=== PATIENT | male | born 1955 | race Caucasian/White ===

== ENCOUNTER 2020-02-09 14:36 | Emergency (ER) | payer BC ==
--- NOTE | 2020-02-09 15:36 | EDM.PDOC ---
ED HPI GENERAL MEDICAL PROBLEM - General Chief Complaint: Upper Extremity Injury/Pain Stated Complaint: L SHOULDER INJURY Time Seen by Provider: 02/09/20 15:10 Source of Information: Reports: Patient History Limitations: Reports: No Limitations - History of Present Illness INITIAL COMMENTS - FREE TEXT/NARRATIVE: 64-year-old male who fell onto his left shoulder, sustaining an injury and hearing a crack and now unable to move his left shoulder. He has no injury of the elbow or the wrist other than a very subtle superficial abrasion on the lateral elbow. No numbness to the arm or hand. He also has a slight abrasion on his knee but his main concern is his left shoulder. No shortness of breath or abdominal pain, no head or neck injury. Onset: Today Location: Reports: Upper Extremity, Left Worsens with: Reports: Movement Left Shoulder Pain Score (Numeric/FACES): 6 - Related Data Allergies Allergy/AdvReac Type Severity Reaction Status Date / Time No Known Allergies Allergy Verified 02/09/20 15:03 Home Meds: Home Meds Rosuvastatin [Crestor] 20 mg PO BEDTIME 02/09/20 [History] Past Medical History HEENT History: Reports: Impaired Vision Cardiovascular History: Reports: High Cholesterol Musculoskeletal History: Reports: Fracture Neurological History: Reports: CVA, Other (See Below) Other Neuro History: had stroke during CABG surgery - Past Surgical History Cardiovascular Surgical History: Reports: Coronary Artery Bypass Social & Family History - Tobacco Use Smoking Status *Q: Never Smoker - Caffeine Use Caffeine Use: Reports: Coffee - Alcohol Use Days Per Week of Alcohol Use: 4 Number of Drinks Per Day: 3 Total Drinks Per Week: 12 - Recreational Drug Use Recreational Drug Use: No Review of Systems - Review of Systems Review Of Systems: See Below Constitutional: Denies: Fever Respiratory: Reports: No Symptoms Musculoskeletal: Reports: Shoulder Pain (Left side). Denies: Neck Pain ED EXAM, GENERAL - Physical Exam Exam: See Below Exam Limited By: No Limitations General Appearance: Alert, Mild Distress (Looks uncomfortable) Head: Atraumatic Neck: Supple Respiratory/Chest: No Respiratory Distress Extremities: Other (There is significant step-off the distal clavicle on the left side, with intense pain with any passive range of motion of the left shoulder. There is no deficit under the AC joint at the humeral head.) Neurological: Alert, Oriented Course - Vital Signs Last Recorded V/S: Last Vital Signs Temp 97.3 F 02/09/20 15:05 Pulse 86 02/09/20 15:05 Resp 20 02/09/20 15:05 BP 186/111 H 02/09/20 15:05 Pulse Ox 100 02/09/20 15:05 - Orders/Labs/Meds Orders: Active Orders 24 hr Category Date Time Status Consult to Orthopedic Clinic [CONS] Routine Cons 02/09/20 15:33 Active Shoulder Comp Lt [CR] Stat Exams 02/09/20 14:56 Taken DME for Discharge [COMM] Stat Oth 02/09/20 15:31 Ordered - Re-Assessments/Exams Free Text/Narrative Re-Assessment/Exam: 02/09/20 15:35 An x-ray shows a displaced distal left clavicle fracture, AC joint is preserved. Patient will be placed in a sling, given 10 hydrocodone for extra pain control and will follow-up with Dr. Graham this week for further treatment and possible surgery. Departure - Departure Time of Disposition: 15:47 Disposition: Home, Self-Care 01 Clinical Impression: Closed left clavicular fracture Qualifiers: Encounter type: initial encounter Clavicle location: lateral end Fracture alignment: displaced Qualified Code(s): S42.032A - Displaced fracture of lateral end of left clavicle, initial encounter for closed fracture - Discharge Information Instructions: Clavicle Fracture, [id number] Referrals: PCP,None [Primary Care Provider] - Forms: ED Department Discharge Care Plan Goals: Ice to the area may be helpful, keep arm in sling until recheck and take a regular dose of ibuprofen or naproxen. Add stronger pain medication if needed as directed. Return if concerns such as numbness in the arm, shortness of breath or uncontrolled pain. Call for an appointment with Dr. Graham tomorrow as instructed on the card. Sepsis Event Note (ED) - Evaluation Sepsis Screening Result: No Definite Risk - Focused Exam Vital Signs: Vital Signs Temp Pulse Resp BP Pulse Ox 02/09/20 15:05 97.3 F 86 20 186/111 H 100 02/09/20 15:02 97.3 F 86 20 186/111 H 100 - My Orders Last 24 Hours: My Active Orders 02/09/20 14:56 Shoulder Comp Lt [CR] Stat 02/09/20 15:31 DME for Discharge [COMM] Stat 02/09/20 15:33 Consult to Orthopedic Clinic [CONS] Routine - Assessment/Plan Last 24 Hours: My Active Orders 02/09/20 14:56 Shoulder Comp Lt [CR] Stat 02/09/20 15:31 DME for Discharge [COMM] Stat 02/09/20 15:33 Consult to Orthopedic Clinic [CONS] Routine
--- NOTE | 2020-02-10 09:29 | CR ---
Shoulder Comp Lt CLINICAL HISTORY: Fall FINDINGS: There is a displaced comminuted fracture of the distal clavicle. AC joint the appears to be intact. Impression: Displaced fracture distal clavicle
== END 2020-02-09 15:48 | disposition home or self-care (01) ==
LOC: JP.ED 14:36
DX: S42.032A Displaced fracture of lateral end of left clavicle, initial encounter for closed fracture (principal); S50.312A Abrasion of left elbow, initial encounter; S80.219A Abrasion, unspecified knee, initial encounter; E78.00 Pure hypercholesterolemia, unspecified; Z86.73 Personal history of transient ischemic attack (TIA), and cerebral infarction without residual deficits; Z95.1 Presence of aortocoronary bypass graft; W19.XXXA Unspecified fall, initial encounter
CPT/HCPCS: 73030-26-LT; 73030-LT; 99283-25